=== PATIENT | female | born 1970 | race Caucasian/White ===

== ENCOUNTER 2022-12-14 12:23 | Outpatient (CLI) | payer OTHER | END 2022-12-14 12:24 | disposition EMS.NT | LOC: EMS 12:23 | DX: Z03.89 Encounter for observation for other suspected diseases and conditions ruled out (principal) ==

== ENCOUNTER 2023-01-12 13:43 | Outpatient (CLI) | payer OTHER | END 2023-01-12 13:44 | disposition left against medical advice (07) | LOC: EMS 13:43 | DX: R53.83 Other fatigue (principal); R46.4 Slowness and poor responsiveness; R39.89 Other symptoms and signs involving the genitourinary system; R63.8 Other symptoms and signs concerning food and fluid intake; E66.01 Morbid (severe) obesity due to excess calories; R09.89 Other specified symptoms and signs involving the circulatory and respiratory systems; M79.89 Other specified soft tissue disorders ==